=== PATIENT | female | born 1965 | race Caucasian/White ===

== ENCOUNTER 2016-12-16 20:46 | Emergency (ER) | payer BC, OTHER, SELFPAY ==
[~2016-12-16] VITALS: Ht 162.6 cm; Wt 62.6 kg
[2016-12-16 20:47] VITALS: BP 133/80
[2016-12-16] MEDS ORDERED: DEXAMETHASONE 4 MG TABLET ONE (21:24)
[2016-12-16] MEDS ORDERED: ALBUTEROL 0.5%, 20ML NPPB SCH (21:30)
[2016-12-16] MEDS ORDERED: DEXAMETHASONE 4 MG TABLET PO ONE (21:30)
[2016-12-16] MEDS ORDERED: ALBUTEROL SULFATE 2.5 MG/3 ML ONE (21:36)
== END 2016-12-16 22:47 | disposition left against medical advice (07) ==
LOC: ED 22:40
DX: J44.1 Chronic obstructive pulmonary disease with (acute) exacerbation (principal)
CPT/HCPCS: 71020; 94640; 99284

== ENCOUNTER 2017-02-12 21:21 | Emergency (ER) | payer BC ==
[~2017-02-12] VITALS: Ht 162.6 cm; Wt 63.0 kg
[2017-02-12 21:29] VITALS: BP 168/96
== END 2017-02-12 22:16 | disposition home or self-care (01) ==
LOC: ED 22:15
DX: Z76.0 Encounter for issue of repeat prescription (principal); J44.9 Chronic obstructive pulmonary disease, unspecified; G40.909 Epilepsy, unspecified, not intractable, without status epilepticus
CPT/HCPCS: 99283

== ENCOUNTER 2017-03-09 09:56 | Inpatient (IN) | payer BC ==
[~2017-03-09] VITALS: Ht 162.6 cm; Wt 65.1 kg
[2017-03-09] MEDS ORDERED: ALBU0.63 NEB (12:22)
[2017-03-09] MEDS ORDERED: ALBUTEROL SULFATE 2.5 MG/3 ML NPPB SCH (12:30)
[2017-03-09] MEDS ORDERED: IPRATROPIUM 0.5 MG/2.5 ML INHA NPPB ONE (12:30)
[2017-03-09] MEDS ORDERED: ALBUTEROL SULFATE 2.5 MG/3 ML ONE ×2 (12:36)
[2017-03-09 12:37] LABS: HEMATOCRIT 51.5 % (34.6-47.8); WHITE BLOOD COUNT 10.1 x10^3/uL (3.4-10)
[2017-03-09 12:49] LABS: BLOOD UREA NITROGEN 6 mg/dL (7-18)
[2017-03-09] MEDS ORDERED: ALBUTEROL 0.5%, 20ML NPPB SCH (14:00)
[2017-03-09] MEDS ORDERED: ALBUTEROL/IPRATROPIUM 2.5MG/0.5MG, 3 ML ONE (14:54)
[2017-03-09] MEDS ORDERED: ALBUTEROL 0.5%, 20ML ONE (15:02)
[2017-03-09 16:51] LABS: RAPID INFLUENZA A Negative (Negative); RAPID INFLUENZA B Negative (Negative)
[2017-03-09] MEDS ORDERED: methylPREDNISolone SOD SUCC 125 MG/2 ML IVPush SCH (19:00)
[2017-03-09] MEDS ORDERED: methylPREDNISolone SOD SUCC 125 MG/2 ML IVPush ONE (19:00)
[2017-03-09] MEDS ORDERED: GUAIFENESIN/DM 200-20MG, 10ML UDC PO PRN (19:00)
[2017-03-09] MEDS ORDERED: ONDANSETRON 2MG/ML, 2ML IVPush PRN (19:00)
[2017-03-09] MEDS ORDERED: BISACODYL 10 MG SUPP PR PRN (19:00)
[2017-03-09] MEDS ORDERED: POLYETHYLENE GLYCOL 17 GM PACKET PO PRN (19:00)
[2017-03-09] MEDS ORDERED: ACETAMINOPHEN 325 MG TABLET PO PRN (19:00)
[2017-03-09] MEDS ORDERED: MAGNESIUM SULFATE PMX 2GM/50ML 50 ML IV ONE (19:00)
[2017-03-09 20:54] VITALS: BP 151/86
[2017-03-09] MEDS: HEPARIN 5,000 UNITS/ML, 1ML SQ SCH (20:54)
[2017-03-09] MEDS: CEFTRIAXONE PMX 1GM/50ML 50 ML IV SCH (20:56)
[2017-03-09] MEDS: NICOTINE 21 MG/24 HR PATCH.TD24 TD SCH (20:57)
[2017-03-09] MEDS: SODIUM CHLORIDE FLUSH 10ML SYR IVF SCH (20:59)
[2017-03-09] MEDS: AZITHROMYCIN 500 MG in SODIUM CHLORIDE 0.9% 250 ML IV SCH (22:08)
[2017-03-10 02:00] VITALS: BP 127/82
[2017-03-10] MEDS: HEPARIN 5,000 UNITS/ML, 1ML SQ SCH ×3 (03:07→19:00)
[2017-03-10] MEDS: methylPREDNISolone SOD SUCC 125 MG/2 ML IVPush SCH ×4 (03:07→22:04)
[2017-03-10] MEDS: NICOTINE 21 MG/24 HR PATCH.TD24 TD SCH (03:28)
[2017-03-10 06:01] LABS: HEMATOCRIT 49.6 % (34.6-47.8); HEMOGLOBIN 16.3 g/dL (11.7-16.4); WHITE BLOOD COUNT 8.1 x10^3/uL (3.4-10)
[2017-03-10 06:08] LABS: BLOOD UREA NITROGEN 13 mg/dL (7-18)
[2017-03-10 06:11] LABS: ASPARTATE AMINO TRANSFERASE 14 U/L (15-37)
[2017-03-10] MEDS: ALBUTEROL/IPRATROPIUM 2.5MG/0.5MG, 3 ML NPPB SCH ×4 (06:15→19:09)
[2017-03-10 07:25] VITALS: BP 126/76
[2017-03-10] MEDS: SENNA/DOCUSATE TABLET PO SCH (09:00)
[2017-03-10] MEDS: SODIUM CHLORIDE FLUSH 10ML SYR IVF SCH ×2 (09:00→20:50)
[2017-03-10] MEDS ORDERED: KETOROLAC 30 MG/1 ML IVPush PRN (10:30)
[2017-03-10] MEDS: FLUTICASONE/VILANTEROL 100-25MCG/INH INH SCH (10:35)
[2017-03-10 13:33] VITALS: BP 125/79
[2017-03-10 19:47] VITALS: BP 133/82
[2017-03-10] MEDS: GUAIFENESIN ER 600 MG TABLET PO SCH (20:47)
[2017-03-10] MEDS: CEFTRIAXONE PMX 1GM/50ML 50 ML IV SCH (20:49)
[2017-03-10] MEDS: AZITHROMYCIN 500 MG in SODIUM CHLORIDE 0.9% 250 ML IV SCH (22:04)
[2017-03-11 02:00] VITALS: BP 132/79
[2017-03-11] MEDS: HEPARIN 5,000 UNITS/ML, 1ML SQ SCH ×3 (03:39→20:50)
[2017-03-11] MEDS: methylPREDNISolone SOD SUCC 125 MG/2 ML IVPush SCH ×4 (03:39→22:08)
[2017-03-11] MEDS: NICOTINE 21 MG/24 HR PATCH.TD24 TD SCH (03:40)
[2017-03-11 05:22] LABS: BLOOD UREA NITROGEN 17 mg/dL (7-18)
[2017-03-11 05:30] LABS: HEMATOCRIT 49.4 % (34.6-47.8); HEMOGLOBIN 16.3 g/dL (11.7-16.4); WHITE BLOOD COUNT 12.5 x10^3/uL (3.4-10)
[2017-03-11 07:13] VITALS: BP 136/84
[2017-03-11] MEDS: ALBUTEROL/IPRATROPIUM 2.5MG/0.5MG, 3 ML NPPB SCH ×4 (08:33→19:30)
[2017-03-11] MEDS: SENNA/DOCUSATE TABLET PO SCH (09:00)
[2017-03-11] MEDS: GUAIFENESIN ER 600 MG TABLET PO SCH ×2 (09:02→20:50)
[2017-03-11] MEDS: FLUTICASONE/VILANTEROL 100-25MCG/INH INH SCH (09:02)
[2017-03-11] MEDS: SODIUM CHLORIDE FLUSH 10ML SYR IVF SCH ×2 (10:45→20:50)
[2017-03-11 14:08] VITALS: BP 142/90
[2017-03-11 20:14] VITALS: BP 162/100
[2017-03-11] MEDS: CEFTRIAXONE PMX 1GM/50ML 50 ML IV SCH (20:50)
[2017-03-11] MEDS: AZITHROMYCIN 500 MG in SODIUM CHLORIDE 0.9% 250 ML IV SCH (22:08)
[2017-03-12 01:45] VITALS: BP 154/94
[2017-03-12] MEDS: HEPARIN 5,000 UNITS/ML, 1ML SQ SCH ×3 (04:55→21:50)
[2017-03-12] MEDS: NICOTINE 21 MG/24 HR PATCH.TD24 TD SCH (04:55)
[2017-03-12] MEDS: methylPREDNISolone SOD SUCC 125 MG/2 ML IVPush SCH (04:55)
[2017-03-12 05:45] LABS: HEMATOCRIT 50.6 % (34.6-47.8); HEMOGLOBIN 16.7 g/dL (11.7-16.4); WHITE BLOOD COUNT 11.8 x10^3/uL (3.4-10)
[2017-03-12 06:08] LABS: BLOOD UREA NITROGEN 18 mg/dL (7-18)
[2017-03-12 06:48] VITALS: BP 147/89
[2017-03-12] MEDS: ALBUTEROL/IPRATROPIUM 2.5MG/0.5MG, 3 ML NPPB SCH ×4 (07:50→19:50)
[2017-03-12] MEDS: SENNA/DOCUSATE TABLET PO SCH (09:00)
[2017-03-12] MEDS: SODIUM CHLORIDE FLUSH 10ML SYR IVF SCH ×2 (09:00→21:50)
[2017-03-12] MEDS: FLUTICASONE/VILANTEROL 100-25MCG/INH INH SCH (09:11)
[2017-03-12] MEDS: GUAIFENESIN ER 600 MG TABLET PO SCH ×2 (09:11→21:50)
[2017-03-12] MEDS ORDERED: SODIUM CHLORIDE NASAL SPRAY 45ML BOTTLE NAS PRN (13:00)
[2017-03-12 13:47] VITALS: BP 124/81
[2017-03-12 19:41] VITALS: BP 131/88
[2017-03-12] MEDS: CEFTRIAXONE PMX 1GM/50ML 50 ML IV SCH (21:49)
[2017-03-12] MEDS: AZITHROMYCIN 500 MG in SODIUM CHLORIDE 0.9% 250 ML IV SCH (22:39)
[2017-03-13 03:34] VITALS: BP 132/78
[2017-03-13] MEDS: HEPARIN 5,000 UNITS/ML, 1ML SQ SCH ×2 (05:29→13:00)
[2017-03-13] MEDS: NICOTINE 21 MG/24 HR PATCH.TD24 TD SCH (05:29)
[2017-03-13 06:45] VITALS: BP 136/80
[2017-03-13] MEDS: ALBUTEROL/IPRATROPIUM 2.5MG/0.5MG, 3 ML NPPB SCH ×2 (07:00→10:45)
[2017-03-13] MEDS: SODIUM CHLORIDE FLUSH 10ML SYR IVF SCH (07:44)
[2017-03-13] MEDS: FLUTICASONE/VILANTEROL 100-25MCG/INH INH SCH (07:44)
[2017-03-13] MEDS: GUAIFENESIN ER 600 MG TABLET PO SCH (07:45)
[2017-03-13] MEDS: SENNA/DOCUSATE TABLET PO SCH (07:45)
[2017-03-13] MEDS ORDERED: GUAI600T31 PO (10:46)
[2017-03-13] MEDS ORDERED: AZIT250T PO (10:46)
[2017-03-13] MEDS ORDERED: FLUT1AER INH (10:46)
[2017-03-13] MEDS ORDERED: CEFD300C37 PO (10:46)
[2017-03-13] MEDS ORDERED: PRED20TA PO (10:46)
== END 2017-03-13 14:20 | disposition home or self-care (01) | DRG 189 ==
LOC: ED 13:19 → EDIP 16:23 → 3NE 18:55 → DCLOUNGE 03-13 14:10
PROVIDERS: ADMIT Internal Medicine; ATTEND Internal Medicine
DX: J96.01 Acute respiratory failure with hypoxia (principal); D75.1 Secondary polycythemia; J44.0 Chronic obstructive pulmonary disease with (acute) lower respiratory infection; J44.1 Chronic obstructive pulmonary disease with (acute) exacerbation; F17.210 Nicotine dependence, cigarettes, uncomplicated; G40.909 Epilepsy, unspecified, not intractable, without status epilepticus; J20.8 Acute bronchitis due to other specified organisms; T38.0X5A Adverse effect of glucocorticoids and synthetic analogues, initial encounter; Z80.49 Family history of malignant neoplasm of other genital organs; Z82.5 Family history of asthma and other chronic lower respiratory diseases
CPT/HCPCS: 36415; 71010; 80048; 80053; 82040; 85025; 87070; 87205; 87400; 93005; 94640; 99285; J0456; J0696; J1644; J7620; J2930; J3475; J7050; J7512